=== PATIENT | female | born 1995 ===

== ENCOUNTER 2022-02-25 20:54 | Emergency (ER) | payer SELFPAY ==
[~2022-02-25] VITALS: Ht 162.6 cm; Wt 150.0 kg
[2022-02-25 21:15] VITALS: BP 146/74
== END 2022-02-25 21:19 ==
LOC: EEVIPCON 20:54 → ER 20:54 → EDBD 20:54 → ER 21:19
DX: E11.65 Type 2 diabetes mellitus with hyperglycemia (principal)